=== PATIENT | male | born 1965 | race African-American/Black ===

== ENCOUNTER 2022-04-07 04:21 | Emergency (ER) | payer MEDICAID ==
[~2022-04-07] VITALS: Ht 188 cm; Wt 123.0 kg
[2022-04-07 04:30] VITALS: BP 180/100
[2022-04-07] MEDS ORDERED: CYCLOBENZAPRINE 10MG TABLET PO ONE (05:00)
[2022-04-07] MEDS ORDERED: KETOROLAC 60MG/2ML VIAL IM ONE (05:00)
[2022-04-07] MEDS ORDERED: LIDOCAINE 5% PATCH TOP SCH (05:00)
[2022-04-07] MEDS ORDERED: MORPHINE SULFATE 10 MG/ML CPJ IM ONE (06:30)
== END 2022-04-07 07:02 | disposition home or self-care (01) ==
LOC: ER 04:21
DX: M54.42 Lumbago with sciatica, left side (principal)
CPT/HCPCS: 96372; 99283; J1885

== ENCOUNTER 2024-10-22 14:01 | Inpatient (IN) | payer MEDICAID, OTHER ==
[~2024-10-22] VITALS: Ht 182.9 cm; Wt 96.6 kg
[2024-10-22] MEDS: SODIUM CHLORIDE 0.9% (SEPSIS BOLUS) IV ONE (14:50)
[2024-10-22] MEDS: CEFTRIAXONE 1GM/50ML 50 ML IV ONE (14:50)
[2024-10-22] MEDS: AZITHROMYCIN 500MG/250ML 250 ML IV ONE (15:17)
[2024-10-22 15:24] LABS: BASOPHILS % 0.4 % (0.0-2.0); EOSINOPHILS % 0.8 % (0.0-5.0); HEMATOCRIT. 26.5 % (42.0-52.0); HEMOGLOBIN. 8.4 g/dL (14.0-18.0); LYMPHOCYTES % 14.8 % (20.0-50.0); MEAN CORPUSCULAR HEMOGLOBIN 26.3 pg (28.0-32.0); MEAN CORPUSCULAR HGB CONC 31.7 g/dL (31.0-37.0); MEAN CORPUSCULAR VOLUME 83.2 fL (80.0-94.0); MEAN PLATELET VOLUME 7.2 fl (7.4-10.4); MONOCYTES % 12.6 % (2.0-8.0); NEUTROPHILS % 71.4 % (40.0-76.0); PLATELET 429 x1000/uL (130-400); RED BLOOD CELL COUNT 3.19 mill/uL (4.7-6.1); RED CELL DISTRIBUTION WIDTH 14.3 % (11.6-14.6)
[2024-10-22 15:29] LABS: CHLORIDE 100 mEq/L (98-107); POTASSIUM 3.6 mEq/L (3.5-5.1); SODIUM 132 mEq/L (136-145)
[2024-10-22 15:30] LABS: CARBON DIOXIDE 24 mEq/L (21-32)
[2024-10-22 15:31] LABS: CALCIUM 7.8 mg/dL (8.7-10.4); INR 1.2
[2024-10-22 15:35] LABS: CREATININE 0.7 mg/dL (0.6-1.3); GLUCOSE 121 mg/dL (70-105)
[2024-10-22 15:36] LABS: TROPONIN I HIGH SENSITIVITY 9 ng/L (3.0-53); UREA NITROGEN BLOOD 6 mg/dL (9-23)
[2024-10-22 15:37] LABS: ALANINE AMINOTRANSFERASE 54 IU/L (10-49); ALBUMIN 2.5 g/dL (3.2-4.8); ASPARTATE AMINOTRANSFERASE 77 IU/L (<34); BILIRUBIN DIRECT 0.1 mg/dL (<=3.0)
[2024-10-22 15:38] LABS: BILIRUBIN TOTAL 0.2 mg/dL (0.1-1.0); PROTEIN TOTAL 6.8 g/dL (6.0-8.3)
[2024-10-22] MEDS: NOREPINEPHRINE 8MG/250ML PMX 250 ML IV ONE (17:04)
[2024-10-22 17:41] LABS: CLARITY URINE CLEAR (CLEAR); COLOR URINE YELLOW (YELLOW); GLUCOSE URINE NEGATIVE (NEGATIVE); KETONES URINE NEGATIVE (NEGATIVE); LEUKOCYTE ESTERASE URINE NEGATIVE (NEGATIVE); NITRITE URINE NEGATIVE (NEGATIVE); OCCULT BLOOD URINE NEGATIVE (NEGATIVE); PROTEIN URINE NEGATIVE (NEGATIVE); SPECIFIC GRAVITY URINE 1.007 (1.005-1.030)
[2024-10-22] MEDS ORDERED: LORAZEPAM 0.5MG TABLET PO PRN (20:15)
[2024-10-22] MEDS ORDERED: ONDANSETRON HCL 4MG/2ML INJ IV PRN (20:15)
[2024-10-22] MEDS ORDERED: ACETAMINOPHEN 325MG TABLET PO PRN ×2 (20:15)
[2024-10-22] MEDS ORDERED: IPRATROPIUM/ALBUTEROL 0.5-3(2.5)MG/3ML NEB HHN PRN (20:15)
[2024-10-22] MEDS ORDERED: SODIUM CHLORIDE 0.9% 1,000 ML IV NR (20:15)
[2024-10-22] MEDS: MAGNESIUM 2 G PREMIX 50 ML IV NR (20:30)
[2024-10-22] MEDS ORDERED: NOREPINEPHRINE 8MG/250ML PMX 250 ML IV PRN (20:30)
[2024-10-22] MEDS ORDERED: DEXTROSE 50% WATER 50ML SYRINGE IV PRN ×2 (20:30→23:45)
[2024-10-22] MEDS: SODIUM CHLORIDE 0.9% 1,000 ML IV SCH (20:31)
[2024-10-22] MEDS: INSULIN LISPRO 100 UNITS/ML SUBCUT SCH (21:00)
[2024-10-22] MEDS: BLOOD SUGAR DIAGNOSTIC STRIP TEST SCH (21:18)
[2024-10-22] MEDS: PIPERACILLIN/TAZO 3.375G/50ML 50 ML IV SCH (22:29)
[2024-10-22 22:35] LABS: BASOPHILS % 0.4 % (0.0-2.0); EOSINOPHILS % 0.2 % (0.0-5.0); HEMOGLOBIN. 8.2 g/dL (14.0-18.0); LYMPHOCYTES % 9.1 % (20.0-50.0); MEAN CORPUSCULAR HEMOGLOBIN 28.4 pg (28.0-32.0); MEAN CORPUSCULAR HGB CONC 32.6 g/dL (31.0-37.0); MEAN CORPUSCULAR VOLUME 87.1 fL (80.0-94.0); MEAN PLATELET VOLUME 7.1 fl (7.4-10.4); MONOCYTES % 10.8 % (2.0-8.0); NEUTROPHILS % 79.5 % (40.0-76.0); PLATELET 392 x1000/uL (130-400); RED BLOOD CELL COUNT 2.88 mill/uL (4.7-6.1); RED CELL DISTRIBUTION WIDTH 14.6 % (11.6-14.6); WHITE BLOOD COUNT 10.3 x1000/uL (4.5-11.0)
[2024-10-22 22:41] LABS: CARBON DIOXIDE 20 mEq/L (21-32); CHLORIDE 102 mEq/L (98-107); SODIUM 131 mEq/L (136-145)
[2024-10-22 22:42] LABS: CALCIUM 6.9 mg/dL (8.7-10.4)
[2024-10-22 22:46] LABS: CREATININE 0.8 mg/dL (0.6-1.3); GLUCOSE 229 mg/dL (70-105); IRON 19 ug/dL (65-175)
[2024-10-22 22:47] LABS: UREA NITROGEN BLOOD 6 mg/dL (9-23)
[2024-10-22 22:48] LABS: TROPONIN I HIGH SENSITIVITY 8 ng/L (3.0-53)
[2024-10-22 22:49] LABS: PHOSPHORUS 1.8 mg/dL (2.5-4.9); TOTAL IRON BINDING CAPACITY 150 ug/dl (250-425)
[2024-10-22 23:03] LABS: LACTIC ACID 3.7 mmol/L (0.4-2.0)
[2024-10-23 01:50] LABS: TROPONIN I HIGH SENSITIVITY 12 ng/L (3.0-53)
[2024-10-23 01:51] LABS: CREATINE KINASE 46 IU/L (46-171)
[2024-10-23] MEDS: SODIUM PHOSPHATE 15 MMOL in DEXT 5% WATER 250 ML IV NR (03:51)
[2024-10-23] MEDS: BLOOD SUGAR DIAGNOSTIC STRIP TEST SCH (08:40)
[2024-10-23 08:53] LABS: BASOPHILS % 0.5 % (0.0-2.0); EOSINOPHILS % 0.6 % (0.0-5.0); HEMATOCRIT. 24.1 % (42.0-52.0); HEMOGLOBIN. 8.1 g/dL (14.0-18.0); LYMPHOCYTES % 17.2 % (20.0-50.0); MEAN CORPUSCULAR HEMOGLOBIN 28.2 pg (28.0-32.0); MEAN CORPUSCULAR HGB CONC 33.8 g/dL (31.0-37.0); MEAN CORPUSCULAR VOLUME 83.7 fL (80.0-94.0); MEAN PLATELET VOLUME 7.2 fl (7.4-10.4); MONOCYTES % 13.7 % (2.0-8.0); PLATELET 419 x1000/uL (130-400); RED BLOOD CELL COUNT 2.88 mill/uL (4.7-6.1); RED CELL DISTRIBUTION WIDTH 14.1 % (11.6-14.6); WHITE BLOOD COUNT 10.3 x1000/uL (4.5-11.0)
[2024-10-23 09:00] LABS: CHLORIDE 101 mEq/L (98-107); POTASSIUM 3.7 mEq/L (3.5-5.1); SODIUM 131 mEq/L (136-145)
[2024-10-23 09:01] LABS: CALCIUM 7.1 mg/dL (8.7-10.4); CARBON DIOXIDE 23 mEq/L (21-32)
[2024-10-23] MEDS: FERROUS SULFATE 325MG TABLET PO SCH (09:02)
[2024-10-23] MEDS: GUAIFENESIN 200MG/10ML SUGAR FREE UDC PO PRN (09:02)
[2024-10-23] MEDS: PANTOPRAZOLE SODIUM 40 MG/VIAL IV SCH (09:02)
[2024-10-23] MEDS: ENOXAPARIN 40MG/0.4ML SYR SUBCUT SCH (09:03)
[2024-10-23 09:06] LABS: CREATININE 0.6 mg/dL (0.6-1.3); GLUCOSE 221 mg/dL (70-105); TRIGLYCERIDE 59 mg/dL (0-150); TROPONIN I HIGH SENSITIVITY 9 ng/L (3.0-53)
[2024-10-23 09:07] LABS: LDL CHOLESTEROL 61 mg/dL (5-100)
[2024-10-23 09:08] LABS: ALBUMIN 2.2 g/dL (3.2-4.8); CHOLESTEROL 90 mg/dL (<200); CREATINE KINASE 51 IU/L (46-171); HDL CHOLESTEROL < 20 mg/dL (>55); PHOSPHORUS 2.4 mg/dL (2.5-4.9)
[2024-10-23 09:11] LABS: T4 FREE 1.15 ng/dL (0.89-1.76)
[2024-10-23] MEDS: IOHEXOL-350 100 ML BOTTLE ONE (09:11)
[2024-10-23 09:27] LABS: UREA NITROGEN BLOOD < 5 mg/dL (9-23)
[2024-10-23] MEDS: AZITHROMYCIN 500MG/250ML 250 ML IV SCH (10:58)
[2024-10-23] MEDS: MAGNESIUM 2 G PREMIX 50 ML IV NR (12:17)
[2024-10-23] MEDS: SODIUM PHOSPHATE 15 MMOL in DEXT 5% WATER 245 ML IV NR (12:17)
[2024-10-23] MEDS: MIDODRINE HCL 5MG TABLET PO NR (14:13)
[2024-10-23 16:08] VITALS: BP 96/67; PULSE 82; RESP 24; TEMP 36.6
[2024-10-23] MEDS ORDERED: MIDODRINE HCL 5MG TABLET PO SCH (17:00)
[2024-10-23 18:00] VITALS: BP 109/79; PULSE 89; RESP 18; TEMP 36.7; O2SAT 98
[2024-10-23 20:00] VITALS: BP 101/73; PULSE 80; RESP 18; TEMP 36.7; O2SAT 98
[2024-10-23] MEDS: HYDROCORTISONE SOD SUCCINATE 100 MG/2 ML VIAL IV SCH (20:00)
[2024-10-23] MEDS: METRONIDAZOLE 500 MG PREMIX 100 ML IV SCH (21:31)
[2024-10-23] MEDS: MIDODRINE HCL 5MG TABLET PO PRN (21:34)
[2024-10-23 21:39] LABS: ALANINE AMINOTRANSFERASE 42 IU/L (10-49); ALBUMIN 2.2 g/dL (3.2-4.8); ASPARTATE AMINOTRANSFERASE 50 IU/L (<34); BILIRUBIN DIRECT 0.1 mg/dL (<=3.0); BILIRUBIN TOTAL 0.3 mg/dL (0.1-1.0); PROTEIN TOTAL 6.2 g/dL (6.0-8.3)
[2024-10-23 22:00] VITALS: BP 80/55; PULSE 83; RESP 14; O2SAT 98
[2024-10-23 22:19] VITALS: BP 98/66; PULSE 83; RESP 17; O2SAT 97
[2024-10-24] VITALS (13 sets, daily range): BP systolic 83–108; BP diastolic 51–75; PULSE 64–99; RESP 11–28; TEMP 36.4–37; O2SAT 95–99
[2024-10-24] MEDS ORDERED: MAGNESIUM 2 G PREMIX 50 ML IV PRN (06:00)
[2024-10-24] MEDS ORDERED: MAGNESIUM 4 G PREMIX 100 ML IV PRN (06:00)
[2024-10-24 08:19] LABS: INFLUENZA TYPE A Presumptive Negative (Pres. Neg.); INFLUENZA TYPE B Presumptive Negative (Pres. Neg.)
[2024-10-24] MEDS: SODIUM CHLORIDE 0.9% 250 ML IV NR (09:04)
[2024-10-24] MEDS: AZITHROMYCIN 500MG/250ML 250 ML IV SCH (09:05)
[2024-10-24 10:37] LABS: BASOPHILS % 0.1 % (0.0-2.0); HEMOGLOBIN. 9.2 g/dL (14.0-18.0); LYMPHOCYTES % 7.7 % (20.0-50.0); MEAN CORPUSCULAR HEMOGLOBIN 27.8 pg (28.0-32.0); MEAN CORPUSCULAR HGB CONC 32.9 g/dL (31.0-37.0); MEAN CORPUSCULAR VOLUME 84.5 fL (80.0-94.0); MEAN PLATELET VOLUME 7.3 fl (7.4-10.4); MONOCYTES % 3.1 % (2.0-8.0); NEUTROPHILS % 89.1 % (40.0-76.0); PLATELET 438 x1000/uL (130-400); RED BLOOD CELL COUNT 3.32 mill/uL (4.7-6.1); RED CELL DISTRIBUTION WIDTH 14.7 % (11.6-14.6); WHITE BLOOD COUNT 10.2 x1000/uL (4.5-11.0)
[2024-10-24 10:46] LABS: CALCIUM 7.8 mg/dL (8.7-10.4); CARBON DIOXIDE 23 mEq/L (21-32); CHLORIDE 104 mEq/L (98-107); POTASSIUM 4.1 mEq/L (3.5-5.1); SODIUM 135 mEq/L (136-145)
[2024-10-24 10:52] LABS: CREATININE 0.7 mg/dL (0.6-1.3); GLUCOSE 254 mg/dL (70-105); UREA NITROGEN BLOOD 6 mg/dL (9-23)
[2024-10-24] MEDS ORDERED: MIDODRINE HCL 5MG TABLET PO PRN (11:15)
[2024-10-24] MEDS: METRONIDAZOLE 500MG TABLET PO SCH (14:33)
[2024-10-24] MEDS: SODIUM CHLORIDE 0.9% 1,000 ML IV SCH (17:40)
[2024-10-24] MEDS ORDERED: ALBUMIN HUMAN 25GM/500ML (5%) IV PRN (18:30)
[2024-10-25] VITALS (9 sets, daily range): BP systolic 103–136; BP diastolic 43–86; PULSE 68–81; RESP 20–26; TEMP 36.4–36.7; O2SAT 95–98
[2024-10-25] MEDS: AZITHROMYCIN 500 MG TABLET PO SCH (09:03)
[2024-10-25] MEDS: INSULIN LISPRO 100 UNITS/ML SUBCUT SCH (17:20)
[2024-10-25] MEDS: GUAIFENESIN 600MG ER TABLET PO SCH (20:36)
[2024-10-25] MEDS: BLOOD SUGAR DIAGNOSTIC STRIP TEST SCH (20:36)
[2024-10-25] MEDS: INSULIN GLARGINE 100 UNITS/ML SUBCUT SCH (22:00)
[2024-10-26] VITALS: BP 101/60; PULSE 77; RESP 21; TEMP 36.3; O2SAT 98
[2024-10-26] MEDS: DIPHENHYDRAMINE 25MG CAPSULE PO NR (03:13)
[2024-10-26 04:00] VITALS: BP 123/86; PULSE 67; RESP 23; TEMP 36.3; O2SAT 98
[2024-10-26 06:11] LABS: BASOPHILS % 0.1 % (0.0-2.0); HEMATOCRIT. 25.1 % (42.0-52.0); HEMOGLOBIN. 8.3 g/dL (14.0-18.0); LYMPHOCYTES % 7.3 % (20.0-50.0); MEAN CORPUSCULAR HEMOGLOBIN 27.7 pg (28.0-32.0); MEAN CORPUSCULAR HGB CONC 33.1 g/dL (31.0-37.0); MEAN CORPUSCULAR VOLUME 83.7 fL (80.0-94.0); MEAN PLATELET VOLUME 7.5 fl (7.4-10.4); MONOCYTES % 5.2 % (2.0-8.0); NEUTROPHILS % 87.4 % (40.0-76.0); PLATELET 448 x1000/uL (130-400); RED CELL DISTRIBUTION WIDTH 14.3 % (11.6-14.6); WHITE BLOOD COUNT 16.7 x1000/uL (4.5-11.0)
[2024-10-26 06:39] LABS: CALCIUM 7.8 mg/dL (8.7-10.4); CHLORIDE 104 mEq/L (98-107); POTASSIUM 4.1 mEq/L (3.5-5.1); SODIUM 136 mEq/L (136-145)
[2024-10-26 06:40] LABS: CARBON DIOXIDE 24 mEq/L (21-32)
[2024-10-26 06:45] LABS: CREATININE 0.8 mg/dL (0.6-1.3); GLUCOSE 329 mg/dL (70-105); UREA NITROGEN BLOOD 8 mg/dL (9-23)
[2024-10-26 06:47] LABS: PHOSPHORUS 2.1 mg/dL (2.5-4.9)
[2024-10-26 08:00] VITALS: BP 120/89; PULSE 73; RESP 28; TEMP 36.3; O2SAT 97
[2024-10-26] MEDS: MAGNESIUM 2 G PREMIX 50 ML IV NR (09:53)
[2024-10-26] MEDS ORDERED: SODIUM PHOSPHATE 15 MMOL in DEXT 5% WATER 245 ML IV NR (10:00)
[2024-10-26] MEDS ORDERED: MIDODRINE HCL 5MG TABLET PO PRN (11:15)
[2024-10-26 12:00] VITALS: BP 134/89; PULSE 60; RESP 24; TEMP 36.7; O2SAT 98
[2024-10-26 15:19] VITALS: BP 110/79; PULSE 76; TEMP 97.6; O2SAT 100
[2024-10-27] MEDS ORDERED: GUAI-450 MT (16:03)
== END 2024-10-26 16:00 | disposition home or self-care (01) | DRG 720 ==
LOC: ER 14:01 → EDBEDREQTM 15:18 → EDBEDREQ 15:18 → MICUSO 16:54 → EDBEDREQSVC 16:56 → EDBEDREQTM 16:56 → EDBEDREQSVC 10-23 14:03 → 5EST 10-23 16:17
PROVIDERS: ADMIT Internal Medicine; ATTEND Internal Medicine
DX: A41.9 Sepsis, unspecified organism (principal); J96.01 Acute respiratory failure with hypoxia; E43 Unspecified severe protein-calorie malnutrition; R65.21 Severe sepsis with septic shock; R57.1 Hypovolemic shock; E87.20 Acidosis, unspecified; J18.9 Pneumonia, unspecified organism; D63.8 Anemia in other chronic diseases classified elsewhere; E83.51 Hypocalcemia; E83.39 Other disorders of phosphorus metabolism; E87.1 Hypo-osmolality and hyponatremia; E86.1 Hypovolemia; D75.838 Other thrombocytosis; G89.29 Other chronic pain; M54.50 Low back pain, unspecified; E83.42 Hypomagnesemia; E11.65 Type 2 diabetes mellitus with hyperglycemia; J20.9 Acute bronchitis, unspecified; E88.09 Other disorders of plasma-protein metabolism, not elsewhere classified; J45.909 Unspecified asthma, uncomplicated; E78.5 Hyperlipidemia, unspecified; Z68.30 Body mass index [BMI] 30.0-30.9, adult; Z85.028 Personal history of other malignant neoplasm of stomach; Z80.0 Family history of malignant neoplasm of digestive organs; Z87.891 Personal history of nicotine dependence; I25.2 Old myocardial infarction
CPT/HCPCS: 36415; 71045; 71275; 74174; 80048; 80061; 80076; 81003; 82040; 82105; 82550; 82728; 82962; 83036; 83540; 83550; 83605; 83735; 83880; 83930; 83970; 84100; 84145; 84439; 84443; 84484; 85025; 86301; 86850; 86900; 87804; 93005; 93970; 97166; 97530; 99291; J0456; J0696; J1650; J1720; J1815; J2470; J2543; J3475; J3490; J7030; J7060; Q0163; Q9967